=== PATIENT | male | born 1985 | race Caucasian/White ===

== ENCOUNTER 2020-03-16 23:16 | Emergency (ER) | payer SELFPAY ==
[~2020-03-16] VITALS: Ht 172.7 cm; Wt 74.0 kg
--- NOTE | 2020-03-16 23:47 | NUR ---
PT STATES HAVING NUMBNESS AND COLD SENSATION ON BILAT FEET THAT STARTED 2 DAYS AGO. PT ALSO STATES LEFT SHOULDER BLADE PAIN THAT STARTED 2 DAYS AGO WELL. PT STATES NO TRAUMA OR INJURY TO AREA. ERP AT BEDSIDE FOR EVAL.
[2020-03-16] MEDS ORDERED: METHOCARBAMOL 750 MG TABLET ONE (23:56)
[2020-03-16] MEDS ORDERED: KETOROLAC 60 MG/2 ML ONE (23:56)
[2020-03-17] MEDS ORDERED: KETOROLAC 30 MG/1 ML IM ONE
[2020-03-17] MEDS ORDERED: METHOCARBAMOL 750 MG TABLET PO ONE
[2020-03-17 00:15] LABS: BASOPHILS % (AUTO) 1 % (0-1); EOSINOPHILS % (AUTO) 4 % (1-7); LYMPHOCYTES % (AUTO) 36 % (22-44); MEAN CORPUSCULAR HEMOGLOBIN 33.7 pg (27.5-34.5); MEAN PLATELET VOLUME 7.2 fL (7.4-10.4); MONOCYTES % (AUTO) 7 % (2-9); NEUTROPHILS % (AUTO) 53 % (42-75); PLATELET COUNT 345 x10^3/uL (130-400); RED BLOOD COUNT 4.09 x10^6/uL (4.38-5.82); RED CELL DISTRIBUTION WIDTH 18.4 % (9.4-14.8)
[2020-03-17 00:27] LABS: ALBUMIN 3.8 g/dL (3.4-5.0); CREATININE 0.98 mg/dL (0.7-1.3)
[2020-03-17 00:44] LABS: MD SCAN
[2020-03-17 01:19] LABS: ANION GAP 2 mmol/L (5-15); CHLORIDE 111 mmol/L (98-107)
[2020-03-17 01:50] VITALS: BP 98/62
== END 2020-03-17 02:11 | disposition home or self-care (01) ==
LOC: ED 03-17 00:19
DX: S29.012A Strain of muscle and tendon of back wall of thorax, initial encounter (principal); R20.2 Paresthesia of skin; M54.2 Cervicalgia; F17.210 Nicotine dependence, cigarettes, uncomplicated; X58.XXXA Exposure to other specified factors, initial encounter; Y93.89 Activity, other specified; Y92.89 Other specified places as the place of occurrence of the external cause; Y99.8 Other external cause status
CPT/HCPCS: 36415; 80048; 82040; 84443; 85025; 96372; 99283; 99406; J1885